=== PATIENT | female | born 1995 | race African-American/Black ===

== ENCOUNTER 2017-12-18 18:10 | Emergency (ER) | payer OTHER ==
[2017-12-18] MEDS: traMADol 50 MG TAB PO (18:44)
[2017-12-18 19:09] LABS: AMORPHOUS SEDIMENT SMALL (NEGATIVE); APPEARANCE, URINE HAZY (CLEAR); BACTERIA, URINE AUTO NEGATIVE (NEGATIVE); BILIRUBIN, URINE AUTO NEGATIVE (NEGATIVE); BLOOD, URINE BLOOD 2+ (NEGATIVE); COLOR, URINE YELLOW (YELLOW); GLUCOSE, URINE (UA) AUTO NEGATIVE (NEGATIVE); KETONE, URINE AUTO NEGATIVE (NEGATIVE); LEUKOCYTE ESTERASE, URINE AUTO NEGATIVE (NEGATIVE); MUCUS, URINE SMALL (NEGATIVE); NITRITE, URINE AUTO NEGATIVE (NEGATIVE); PROTEIN, URINE AUTO NEGATIVE (NEGATIVE); RBC, URINE AUTO 3 /HPF (0-3); SPECIFIC GRAVITY URINE AUTO 1.019 (1.002-1.035); SQUAMOUS EPITHELIAL CELL UR AU 0 /HPF (0-6); WBC, URINE AUTO 1 /HPF (0-3)
== END 2017-12-18 20:35 | disposition home or self-care (01) ==
LOC: M ED 18:10
DX: N83.201 Unspecified ovarian cyst, right side (principal); N94.6 Dysmenorrhea, unspecified
CPT/HCPCS: 76856

== ENCOUNTER 2018-08-20 11:15 | Emergency (ER) | payer OTHER ==
[2018-08-20] MEDS: KETOROLAC 30 MG/ML VIAL (J1885) IV (12:11)
[2018-08-20] MEDS: NS 1,000 ML IV (12:11)
[2018-08-20] MEDS: ONDANSETRON 4MG/2ML VIAL (J2405) IV (12:11)
[2018-08-20 12:42] LABS: ANION GAP 5 MEQ/L (8-16); BLOOD UREA NITROGEN 9 MG/DL (7-18); CALCIUM LEVEL 9.2 MG/DL (8.5-10.1); CARBON DIOXIDE LEVEL 30 MEQ/L (21-32); CHLORIDE LEVEL 107 MEQ/L (98-107); CREATININE FOR GFR 0.81 MG/DL (0.55-1.30); GLOMERULAR FILTRATION RATE > 60.0 (>60); GLUCOSE, FASTING 86 MG/DL (70-100); POTASSIUM SERUM 3.9 MEQ/L (3.5-5.1); SODIUM LEVEL 142 MEQ/L (136-145)
[2018-08-20 13:16] LABS: BASO # 0.1 10^3/uL (0.0-0.2); BASO % 0.6 % (0.0-1.0); EOS % 0.3 % (0.0-3.0); HEMATOCRIT 37.6 % (36.0-47.0); HEMOGLOBIN 13.5 g/dl (12.0-15.5); IMMATURE GRANULOCYTE % 0.1 % (0-3.0); LYMPH % 38.5 % (24.0-44.0); MEAN CORPUSCULAR HEMOGLOBIN 31.8 pg (27.0-33.0); MEAN CORPUSCULAR HGB CONC 35.9 g/dl (32.0-36.5); MEAN CORPUSCULAR VOLUME 88.5 fl (80.0-96.0); MONO # 0.5 10^3/uL (0.0-0.8); MONO % 6.8 % (0.0-5.0); NEUTROPHILS # 4.2 10^3/uL (1.8-7.7); NEUTROPHILS % 53.7 % (36.0-66.0); PLATELET COUNT, AUTOMATED 291 10^3/uL (150-450); RED BLOOD COUNT 4.25 10^6/uL (4.00-5.40); RED CELL DISTRIBUTION WIDTH 12.1 % (11.5-14.5); WHITE BLOOD COUNT 7.8 10^3/uL (4.0-10.0)
== END 2018-08-20 13:39 | disposition home or self-care (01) ==
LOC: M ED 11:15
DX: R51 Headache (principal)
CPT/HCPCS: J2405

== ENCOUNTER 2019-02-26 19:37 | Emergency (ER) | payer OTHER ==
[~2019-02-26] VITALS: Ht 162.6 cm; Wt 56.8 kg
[~2019-02-26 19:37] MED LIST: IBUP-1022 PO; IBUP-1114 PO; TYLE325T5 PO; ULTR50TA8 PO; ZOFR4TAB14 PO
[2019-02-26] MEDS ORDERED: NAPROXEN 250 MG TAB PO ONE (20:45)
[2019-02-26] MEDS ORDERED: NAPR-837 PO (20:55)
[2019-02-26 21:01] VITALS: BP 116/67
--- NOTE | 2019-02-27 08:55 | REP ---
LEFT 1ST DIGIT: Four views of the left 1st digit were performed and demonstrate no fracture, dislocation, or intrinsic bone disease. IMPRESSION: No fracture or dislocation. Electronically Signed by Carlos Mann MD 02/27/2019 12:42 P
== END 2019-02-26 21:04 | disposition home or self-care (01) ==
LOC: M ED 19:37
DX: S93.522A Sprain of metatarsophalangeal joint of left great toe, initial encounter (principal); X58.XXXA Exposure to other specified factors, initial encounter; Y92.139 Unspecified place military base as the place of occurrence of the external cause; Y99.1 Military activity